=== PATIENT | female | born 1980 | race Hispanic/Latino ===

== ENCOUNTER 2018-08-01 12:31 | Emergency (ER) | payer OTHER, SELFPAY ==
[2018-08-01] MEDS ORDERED: OSELTAMIVIR 75 MG CAP ONE (13:55)
[2018-08-01] MEDS ORDERED: IBUPROFEN 400 MG TAB ONE ×2 (13:55→14:01)
[2018-08-01 14:06] LABS: Urine Blood 1+ (NEG); Urine Glucose NEGATIVE (NEG); Urine Protein 1+ (NEG)
--- NOTE | 2018-08-01 14:16 | ER ---
Nurse's Notes [facility] Name: Michelle Flores Age: 38 yrs Sex: Female : 1980 Arrival Date: 08/01/2018 Time: 12:35 Bed Treatment Private MD: Diagnosis: Fever, unspecified;Malaise and fatigue;Type 2 diabetes mellitus;Urinary tract infection, site not specified Presentation: 08/01 12:48 Presenting complaint: Patient states: MYALGIA AND FEVER SINCE THURSDAY. Transition of bp care: patient was not received from another setting of care. Onset of symptoms is unknown. Risk Assessment: Do you want to hurt yourself or someone else? Patient reports no desire to harm self or others. Initial Sepsis Screen: Does the patient meet any 2 criteria? No. Patient's initial sepsis screen is negative. Does the patient have a suspected source of infection? No. Patient's initial sepsis screen is negative. Care prior to arrival: None. 12:48 Method Of Arrival: Ambulatory bp 12:48 Acuity: RYAN 4 bp Historical: - Allergies: 12:49 No Known Allergies; bp - Home Meds: 12:49 metformin 500 mg Oral tab 1 tab 2 times per day [Active]; bp - PMHx: 12:49 Diabetes - NIDDM; bp - Immunization history:: Adult Immunizations up to date. - Social history:: Smoking status: Patient/guardian denies using tobacco. - Ebola Screening: : No symptoms or risks identified at this time. - Family history:: not pertinent. Screenin:48 Abuse screen: Denies threats or abuse. Denies injuries from another. Nutritional ss screening: No deficits noted. Tuberculosis screening: Never had TB. Fall Risk None identified. Assessment: 13:48 General: Appears uncomfortable, ill, Behavior is calm, cooperative, Reports chills for ss 2-3 days, fever for 2-3 days, feeling ill for 2-3 days, fatigue for 2-3 days. Pain: Complains of pain in general body aches Pain currently is 7 out of 10 on a pain scale. Quality of pain is described as aching, Pain began 2-3 days ago. Is continuous. Neuro: Level of Consciousness is awake, alert, obeys commands, Oriented to person, place, time, situation. Cardiovascular: Capillary refill < 3 seconds is brisk in bilateral Patient's skin is warm and dry. Respiratory: Airway is patent Respiratory effort is even, unlabored, Respiratory pattern is regular, symmetrical. GI: Patient currently denies diarrhea, nausea, vomiting. : No signs and/or symptoms were reported regarding the genitourinary system. Denies burning with urination. EENT: Nares are clear Oral mucosa is moist. Derm: Skin is intact, is healthy with good turgor, Skin is dry, Skin is pink, warm \T\ dry. normal. Musculoskeletal: Circulation, motion, and sensation intact. Range of motion: intact in all extremities, Swelling absent. 14:37 Reassessment: Patient appears in no apparent distress at this time. Patient and/or ss family updated on plan of care and expected duration. Pain level reassessed. Patient is alert, oriented x 3, equal unlabored respirations, skin warm/dry/pink. Patient states feeling better. Patient states symptoms have improved. Vital Signs: 12:49 BP 121 / 68; Pulse 97; Resp 16; Temp 99.4; Pulse Ox 98% ; Weight 95.71 kg; Height 5 ft. bp 2 in. (157.48 cm); 12:49 Body Mass Index 38.59 (95.71 kg, 157.48 cm) bp ED Course: 12:35 Patient arrived in ED. tw3 12:49 Triage completed. bp 12:49 Arm band placed on. bp 12:51 Atif Lamb MD is Attending Physician. [facility] 13:36 Brenda Meredith, ULICES is Primary Nurse. ss 13:44 Urine Culture Sent. 5 13:45 Diet: Patient given juice. 5 13:45 Urine collected: clean catch specimen, cloudy. mh5 13:48 Patient has correct armband on for positive identification. Bed in low position. Call ss light in reach. 14:37 No provider procedures requiring assistance completed. Patient did not have IV access ss during this emergency room visit. Administered Medications: 13:42 Drug: Motrin 800 mg Route: PO; ss 14:36 Follow up: Response: No adverse reaction; Marked relief of symptoms; Pain is decreased ss 13:42 Drug: Tamiflu 75 mg Route: PO; ss 14:37 Follow up: Response: No adverse reaction ss 14:36 Drug: LevOfloxacin 750 mg Route: PO; ss 14:36 Follow up: Response: Medication administered at discharge. Outcome: 14:15 Discharge ordered by . elly 14:41 Discharged to home ambulatory. 14:41 Condition: good 14:41 Discharge instructions given to patient, family, Instructed on discharge instructions, follow up and referral plans. medication usage, Demonstrated understanding of instructions, follow-up care, medications, Prescriptions given X 3. 14:42 Patient left the ED. Signatures: Atif Lamb MD MD cha Smirch, Shelby, RN RN [place] 5 Charles, Niurka 3 Kojo Villeda, ULICES RN bp
--- NOTE | 2018-08-01 14:16 | EDPHYS ---
Physician Documentation [facility] Name: Michelle Flores Age: 38 yrs Sex: Female : 1980 Arrival Date: 08/01/2018 Time: 12:35 Bed Treatment Private MD: ED Physician Atif Lamb HPI: 08/01 13:25 This 38 yrs old Female presents to ER via Ambulatory with complaints of Fever, elly Pain All Over. 13:25 The patient reports fever, that was measured at 100 degrees Fahrenheit. Onset: The elly symptoms/episode began/occurred 2 day(s) ago. Modifying factors: there are no obvious modifying factors. Associated signs and symptoms: Pertinent positives: cough, runny nose. Severity of symptoms: At their worst the symptoms were mild in the emergency department the symptoms are unchanged. The patient has not experienced similar symptoms in the past. Historical: - Allergies: 12:49 No Known Allergies; bp - Home Meds: 12:49 metformin 500 mg Oral tab 1 tab 2 times per day [Active]; bp - PMHx: 12:49 Diabetes - NIDDM; bp - Immunization history:: Adult Immunizations up to date. - Social history:: Smoking status: Patient/guardian denies using tobacco. - Ebola Screening: : No symptoms or risks identified at this time. - Family history:: not pertinent. ROS: 13:25 Eyes: Negative for injury, pain, redness, and discharge, ENT: Negative for injury, elly pain, and discharge, Neck: Negative for injury, pain, and swelling, Cardiovascular: Negative for chest pain, palpitations, and edema, Respiratory: Negative for shortness of breath, cough, wheezing, and pleuritic chest pain, Abdomen/GI: Negative for abdominal pain, nausea, vomiting, diarrhea, and constipation, : Negative for injury, bleeding, discharge, and swelling, MS/Extremity: Negative for injury and deformity, Skin: Negative for injury, rash, and discoloration, Neuro: Negative for headache, weakness, numbness, tingling, and seizure, Psych: Negative for depression, anxiety, suicide ideation, homicidal ideation, and hallucinations, Allergy/Immunology: Negative for hives, rash, and allergies, Endocrine: Negative for neck swelling, polydipsia, polyuria, polyphagia, and marked weight changes, Hematologic/Lymphatic: Negative for swollen nodes, abnormal bleeding, and unusual bruising. 13:25 Constitutional: Positive for body aches, fatigue, fever. 13:25 Back: Positive for decreased range of motion, pain at rest, pain with movement, of the lumbar area. Exam: 13:25 Head/Face: Normocephalic, atraumatic. Eyes: Pupils equal round and reactive to light, elly extra-ocular motions intact. Lids and lashes normal. Conjunctiva and sclera are non-icteric and not injected. Cornea within normal limits. Periorbital areas with no swelling, redness, or edema. ENT: Nares patent. No nasal discharge, no septal abnormalities noted. Tympanic membranes are normal and external auditory canals are clear. Oropharynx with no redness, swelling, or masses, exudates, or evidence of obstruction, uvula midline. Mucous membranes moist. Neck: Trachea midline, no thyromegaly or masses palpated, and no cervical lymphadenopathy. Supple, full range of motion without nuchal rigidity, or vertebral point tenderness. No Meningismus. Chest/axilla: Normal chest wall appearance and motion. Nontender with no deformity. No lesions are appreciated. Cardiovascular: Regular rate and rhythm with a normal S1 and S2. No gallops, murmurs, or rubs. Normal PMI, no JVD. No pulse deficits. Respiratory: Lungs have equal breath sounds bilaterally, clear to auscultation and percussion. No rales, rhonchi or wheezes noted. No increased work of breathing, no retractions or nasal flaring. Abdomen/GI: Soft, non-tender, with normal bowel sounds. No distension or tympany. No guarding or rebound. No evidence of tenderness throughout. Back: No spinal tenderness. No costovertebral tenderness. Full range of motion. Female : Normal external genitalia. Skin: Warm, dry with normal turgor. Normal color with no rashes, no lesions, and no evidence of cellulitis. MS/ Extremity: Pulses equal, no cyanosis. Neurovascular intact. Full, normal range of motion. Neuro: Awake and alert, GCS 15, oriented to person, place, time, and situation. Cranial nerves II-XII grossly intact. Motor strength 5/5 in all extremities. Sensory grossly intact. Cerebellar exam normal. Normal gait. Psych: Awake, alert, with orientation to person, place and time. Behavior, mood, and affect are within normal limits. 13:25 Constitutional: The patient appears febrile, in obvious distress, mildly distressed. Vital Signs: 12:49 BP 121 / 68; Pulse 97; Resp 16; Temp 99.4; Pulse Ox 98% ; Weight 95.71 kg; Height 5 ft. bp 2 in. (157.48 cm); 12:49 Body Mass Index 38.59 (95.71 kg, 157.48 cm) bp MDM: 13:12 Patient medically screened. [facility] 14:06 Data reviewed: vital signs, nurses notes, lab test result(s). [facility] 08/01 13:12 Order name: Flu; Complete Time: 14:08 08/01 13:12 Order name: Strep; Complete Time: 14:08 08/01 13:24 Order name: Urine Culture [facility] 08/01 13:47 Order name: Urine Dipstick--Ancillary (enter results); Complete Time: 14:08 08/01 13:47 Order name: Urine --Ancillary (enter results); Complete Time: 14:08 08/01 13:54 Order name: Throat Culture [facility] 08/01 13:24 Order name: Urine Dipstick-Ancillary (obtain specimen); Complete Time: 13:44 [facility] 08/01 13:29 Order name: PO challenge; Complete Time: 13:42 [facility] Administered Medications: 13:42 Drug: Motrin 800 mg Route: PO; 14:36 Follow up: Response: No adverse reaction; Marked relief of symptoms; Pain is decreased 13:42 Drug: Tamiflu 75 mg Route: PO; 14:37 Follow up: Response: No adverse reaction 14:36 Drug: LevOfloxacin 750 mg Route: PO; 14:36 Follow up: Response: Medication administered at discharge. Disposition: 08/01/18 14:15 Discharged to Home. Impression: Fever, unspecified, Malaise and fatigue, Type 2 diabetes mellitus, Urinary tract infection, site not specified. - Condition is Stable. - Discharge Instructions: Type 2 Diabetes Mellitus, Diagnosis, Adult, Fever, Adult, Urinary Tract Infection, Adult, Weakness, Urinary Tract Infection, Adult, Whjp-[id number], Weakness, Uahe-cf-Crce, Type 2 Diabetes Mellitus, Diagnosis, Adult, Uzjz-wy-Kucs, Fever, Adult, Lnwh-nm-Wily. - Prescriptions for Zofran 4 mg Oral Tablet - take 1 tablet by ORAL route every 12 hours As needed; 14 tablet. Tamiflu 75 mg Oral Capsule - take 1 tablet by ORAL route every 12 hours for 5 days; 10 tablet. Levaquin 500 mg Oral Tablet - take 1 tablet by ORAL route once daily for 7 days; 7 tablet. - Medication Reconciliation Form, Thank You Letter, Antibiotic Education, Prescription Opioid Use, Work release form, Family Work Release form. - Follow up: Private Physician; When: 2 - 3 days; Reason: Recheck today's complaints, Continuance of care, Re-evaluation by your physician. - Problem is new. - Symptoms have improved. Signatures: Dispatcher [employer] EDMS Atif Lamb MD MD cha Smirch, Shelby, ULICES RN Kojo Aguilera RN RN bp Corrections: (The following items were deleted from the chart) 14:42 14:15 08/01/2018 14:15 Discharged to Home. Impression: Fever, unspecified; Malaise and ss fatigue; Type 2 diabetes mellitus; Urinary tract infection, site not specified. Condition is Stable. Discharge Instructions: Type 2 Diabetes Mellitus, Diagnosis, Adult, Fever, Adult, Weakness, Weakness, Rqly-ca-Cefh, Type 2 Diabetes Mellitus, Diagnosis, Adult, Wajq-xx-Qnxv, Fever, Adult, Chkz-nn-Kwqz. Prescriptions for Zofran 4 mg Oral Tablet - take 1 tablet by ORAL route every 12 hours As needed; 14 tablet, Zithromax Z-Gibson 250 mg Oral Tablet - take 1 tablet by ORAL route as directed for 5 days Day 1 - take two (2) tablets one time. Day 2, 3, 4 , 5 take one (1) tablet once daily.; 6 tablet, Tamiflu 75 mg Oral Capsule - take 1 tablet by ORAL route every 12 hours for 5 days; 10 tablet. and Forms are Medication Reconciliation Form, Thank You Letter, Antibiotic Education, Prescription Opioid Use. Follow up: Private Physician; When: 2 - 3 days; Reason: Recheck today's complaints, Continuance of care, Re-evaluation by your physician. Problem is new. Symptoms have improved. elly
[2018-08-01] MEDS ORDERED: levoFLOXacin 750 MG TAB ONE (14:48)
== END 2018-08-01 14:42 | disposition home or self-care (01) ==
LOC: ER 12:31
DX: R50.9 Fever, unspecified (principal); E11.9 Type 2 diabetes mellitus without complications; N39.0 Urinary tract infection, site not specified; R53.83 Other fatigue; Z79.84 Long term (current) use of oral hypoglycemic drugs
CPT/HCPCS: 81003; 81025; 87070; 87081; 87086; 87088; 87804; 99283

== ENCOUNTER 2018-10-29 16:34 | Emergency (ER) | payer SELFPAY ==
[2018-10-29] MEDS ORDERED: FENTANYL CITR 100 MCG/2 ML ONE (17:08)
--- NOTE | 2018-10-29 17:25 | ER ---
Nurse's Notes [facility] Name: Michelle Flores Age: 38 yrs Sex: Female : 1980 Arrival Date: 10/29/2018 Time: 16:40 Bed 23 Private MD: Diagnosis: Sprain of ankle Presentation: 10/29 16:41 Presenting complaint: EMS states: Pt fell 4 steps down, twisted R ankle. Denied LOC, ca1 back pain. Transition of care: patient was not received from another setting of care. Onset of symptoms was October 29, 2018. Risk Assessment: Do you want to hurt yourself or someone else? Patient reports no desire to harm self or others. Initial Sepsis Screen: Does the patient meet any 2 criteria? No. Patient's initial sepsis screen is negative. Does the patient have a suspected source of infection? No. Patient's initial sepsis screen is negative. Care prior to arrival: Splint applied. 16:41 Method Of Arrival: EMS: [facility] ca1 16:41 Acuity: RYAN 4 ca1 Triage Assessment: 16:45 General: Appears in no apparent distress. comfortable, Behavior is calm, cooperative, ca1 appropriate for age. Pain: Complains of pain in right ankle Pain currently is 6 out of 10 on a pain scale. 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 - Social history:: Smoking status: Patient/guardian denies using tobacco. - Ebola Screening: : Patient negative for fever greater than or equal to 101.5 degrees Fahrenheit, and additional compatible Ebola Virus Disease symptoms Patient denies exposure to infectious person Patient denies travel to an Ebola-affected area in the 21 days before illness onset No symptoms or risks identified at this time. Screenin:47 Abuse screen: Denies threats or abuse. Denies injuries from another. Nutritional ca1 screening: No deficits noted. Tuberculosis screening: No symptoms or risk factors identified. Fall Risk Fall in past 12 months (25 points). Assessment: 16:47 General: Appears in no apparent distress. comfortable, Behavior is calm, cooperative, ca1 appropriate for age. Pain: Complains of pain in right leg and right ankle Pain currently is 6 out of 10 on a pain scale. Neuro: Level of Consciousness is awake, alert, obeys commands, Oriented to person, place, time, situation. Cardiovascular: Heart tones S1 S2 present Capillary refill < 3 seconds Patient's skin is warm and dry. Respiratory: Airway is patent Respiratory effort is even, unlabored, Respiratory pattern is regular, symmetrical, Breath sounds are clear bilaterally. GI: Abdomen is round non-distended, Bowel sounds present X 4 quads. Abd is soft and non tender X 4 quads. : No deficits noted. No signs and/or symptoms were reported regarding the genitourinary system. EENT: No deficits noted. No signs and/or symptoms were reported regarding the EENT system. Derm: Skin is intact, is healthy with good turgor, Skin is pink, warm \T\ dry. Musculoskeletal: Circulation, motion, and sensation intact. Capillary refill < 3 seconds, Range of motion: limited in right ankle. 17:50 Reassessment: Patient appears in no apparent distress at this time. Patient and/or ca1 family updated on plan of care and expected duration. Pain level reassessed. Patient is alert, oriented x 3, equal unlabored respirations, skin warm/dry/pink. Patient states feeling better. Vital Signs: 16:47 BP 118 / 78; Pulse 89; Resp 17 S; Temp 98.1(O); Pulse Ox 99% on R/A; Weight 90.72 kg ca1 (R); Height 5 ft. 2 in. (157.48 cm) (R); Pain 6/10; 17:50 BP 121 / 81; Pulse 82; Resp 16; Pulse Ox 100% on R/A; ca1 16:47 Body Mass Index 36.58 (90.72 kg, 157.48 cm) ca1 ED Course: 16:40 Patient arrived in ED. ca1 16:40 Dom Abdi PA is PHCP. jr8 16:40 Ko Davis MD is Attending Physician. jr8 16:42 Triage completed. ca1 16:45 Arm band placed on right wrist. ca1 16:47 Patient has correct armband on for positive identification. Bed in low position. Call ca1 light in reach. Side rails up X 1. Pulse ox on. NIBP on. Warm blanket given. 16:47 No provider procedures requiring assistance completed. ca1 16:51 Affected limb iced. Affected limb elevated. ca1 16:54 Marcela Falcon, RN is Primary Nurse. ca1 16:58 XRAY Tib Fib RIGHT In Process Unspecified. EDMS 17:10 Inserted saline lock: 22 gauge in right antecubital area, using aseptic technique. Blood collected. 17:24 Adam Hinkle MD is Referral Physician. jr8 17:50 Crutch training done. John Paul wrap to right ankle. ca1 17:51 IV discontinued, intact, bleeding controlled, No redness/swelling at site. Pressure ca1 dressing applied. Administered Medications: 17:10 Drug: fentaNYL (PF) 50 mcg {Note: RASS 0.} Route: IVP; Site: right antecubital; 17:36 Follow up: Response: No adverse reaction; Pain is decreased; RASS: Alert and Calm (0) ca1 Outcome: 17:24 Discharge ordered by . jrElissa 17:51 Discharged to home via wheelchair, with crutches, with family, with friend. ca1 17:51 Condition: stable 17:51 Discharge instructions given to patient, Instructed on discharge instructions, follow up and referral plans. medication usage, crutch walking, Demonstrated understanding of instructions, follow-up care, medications, crutch walking, Prescriptions given X 2. 17:52 Patient left the ED. ca1 Signatures: Dispatcher [employer] EDMS Dom Abdi PA PA jr8 Darrius Neri Marcela Falcon, RN RN ca1 Corrections: (The following items were deleted from the chart) 17:51 16:47 Patient did not have IV access during this emergency room visit. ca1 ca1
--- NOTE | 2018-10-29 17:25 | EDPHYS ---
Physician Documentation [facility] Name: Michelle Flores Age: 38 yrs Sex: Female : 1980 Arrival Date: 10/29/2018 Time: 16:40 Bed 23 Private MD: ED Physician Ko Davis HPI: 10/29 16:42 This 38 yrs old Female presents to ER via Unassigned with complaints of Fall jr8 Injury. 16:42 Details of fall: The patient fell from a height, down approximately 4 stairs. Onset: jr8 The symptoms/episode began/occurred acutely, today. Associated injuries: The patient sustained right ankle, decreased range of motion, painful injury, swelling. Severity of symptoms: At their worst the symptoms were moderate, in the emergency department the symptoms are unchanged. The patient has not experienced similar symptoms in the past. The patient has not recently seen a physician. KINESIOLOGIST: 16:47 LMP 09/24/2018 ca1 Historical: - Allergies: 16:45 No Known Allergies; ca1 - Home Meds: 16:45 metformin 500 mg Oral tab 1 tab 2 times per day [Active]; ca1 - PMHx: 16:45 Diabetes - NIDDM; ca1 - PSHx: 16:45 None; ca1 - Immunization history:: Adult Immunizations not up to date. - Social history:: Smoking status: Patient/guardian denies using tobacco. - Ebola Screening: : Patient negative for fever greater than or equal to 101.5 degrees Fahrenheit, and additional compatible Ebola Virus Disease symptoms Patient denies exposure to infectious person Patient denies travel to an Ebola-affected area in the 21 days before illness onset No symptoms or risks identified at this time. ROS: 16:42 Eyes: Negative for injury, pain, redness, and discharge, ENT: Negative for injury, jr8 pain, and discharge, Neck: Negative for injury, pain, and swelling, Cardiovascular: Negative for chest pain, palpitations, and edema, Respiratory: Negative for shortness of breath, cough, wheezing, and pleuritic chest pain, Abdomen/GI: Negative for abdominal pain, nausea, vomiting, diarrhea, and constipation, Back: Negative for injury and pain, Skin: Negative for injury, rash, and discoloration, Neuro: Negative for headache, weakness, numbness, tingling, and seizure. 16:42 MS/extremity: Positive for decreased range of motion, pain, swelling, tenderness, of the right ankle. Exam: 16:42 Head/Face: Normocephalic, atraumatic. Eyes: Pupils equal round and reactive to light, jr8 extra-ocular motions intact. Lids and lashes normal. Conjunctiva and sclera are non-icteric and not injected. Cornea within normal limits. Periorbital areas with no swelling, redness, or edema. ENT: Nares patent. No nasal discharge, no septal abnormalities noted. Tympanic membranes are normal and external auditory canals are clear. Oropharynx with no redness, swelling, or masses, exudates, or evidence of obstruction, uvula midline. Mucous membranes moist. Neck: Trachea midline, no thyromegaly or masses palpated, and no cervical lymphadenopathy. Supple, full range of motion without nuchal rigidity, or vertebral point tenderness. No Meningismus. Chest/axilla: Normal chest wall appearance and motion. Nontender with no deformity. No lesions are appreciated. Cardiovascular: Regular rate and rhythm with a normal S1 and S2. No gallops, murmurs, or rubs. Normal PMI, no JVD. No pulse deficits. Respiratory: Lungs have equal breath sounds bilaterally, clear to auscultation and percussion. No rales, rhonchi or wheezes noted. No increased work of breathing, no retractions or nasal flaring. Abdomen/GI: Soft, non-tender, with normal bowel sounds. No distension or tympany. No guarding or rebound. No evidence of tenderness throughout. Back: No spinal tenderness. No costovertebral tenderness. Full range of motion. Skin: Warm, dry with normal turgor. Normal color with no rashes, no lesions, and no evidence of cellulitis. Neuro: Awake and alert, GCS 15, oriented to person, place, time, and situation. Cranial nerves II-XII grossly intact. Motor strength 5/5 in all extremities. Sensory grossly intact. Cerebellar exam normal. Normal gait. 16:42 Musculoskeletal/extremity: Extremities: grossly normal except: noted in the right ankle: decreased ROM, pain, swelling, tenderness, Pulses: noted to be 2+ in the right radial artery, right posterior tibial artery, right dorsalis pedis artery, left radial artery, left posterior tibial artery and left dorsalis pedis artery. Vital Signs: 16:47 BP 118 / 78; Pulse 89; Resp 17 S; Temp 98.1(O); Pulse Ox 99% on R/A; Weight 90.72 kg ca1 (R); Height 5 ft. 2 in. (157.48 cm) (R); Pain 6/10; 17:50 BP 121 / 81; Pulse 82; Resp 16; Pulse Ox 100% on R/A; ca1 16:47 Body Mass Index 36.58 (90.72 kg, 157.48 cm) ca1 Procedures: 17:23 Splinting: Splint applied to right ankle using john paul wrap, applied by tech. nurse. jr8 Examined by me, post splint application: neurovascular intact, 2+ distal pulses palpable, brisk capillary refill noted, Patient tolerated well. Crutch training provided to patient and/or family. Return demonstration given. MDM: 16:40 Patient medically screened. jr8 17:23 Data reviewed: vital signs, nurses notes, radiologic studies, plain films. Data jr8 interpreted: Pulse oximetry: on room air is 99 %. Interpretation: normal. Test interpretation: by ED physician or midlevel provider: plain radiologic studies, No acute fracture noted . Counseling: I had a detailed discussion with the patient and/or guardian regarding: the historical points, exam findings, and any diagnostic results supporting the discharge/admit diagnosis, radiology results, the need for outpatient follow up, a orthopedic surgeon, to return to the emergency department if symptoms worsen or persist or if there are any questions or concerns that arise at home. 10/29 16:40 Order name: XRAY Tib Fib RIGHT jr8 10/29 16:40 Order name: IV; Complete Time: 17:04 jr8 10/29 17:23 Order name: John Paul wrap-joint; Complete Time: 17:45 jr8 10/29 17:23 Order name: Crutches; Complete Time: 17:45 jr8 Administered Medications: 17:10 Drug: fentaNYL (PF) 50 mcg {Note: RASS 0.} Route: IVP; Site: right antecubital; 17:36 Follow up: Response: No adverse reaction; Pain is decreased; RASS: Alert and Calm (0) ca1 Disposition: 10/29/18 17:24 Discharged to Home. Impression: Sprain of ankle. - Condition is Stable. - Discharge Instructions: Ankle Sprain. - Prescriptions for Ibuprofen 800 mg Oral Tablet - take 1 tablet by ORAL route every 12 hours As needed take with food; 20 tablet. Tramadol 50 mg Oral Tablet - take 1 tablet by ORAL route every 8 hours as needed; 12 tablet. - Work release form, Medication Reconciliation Form, Thank You Letter, Antibiotic Education, Prescription Opioid Use form. - Follow up: Adam Hinkle MD; When: 5 - 6 days; Reason: Recheck today's complaints, Continuance of care, Re-evaluation by your physician. - Problem is new. - Symptoms have improved. Addendum: 10/31/2018 19:24 Co-signature as Attending Physician, Ko Davis MD I agree with the assessment and k dr plan of care. Signatures: Dispatcher [employer] EDMS Ko Davis MD MD [facility] Dom Abdi PA PA jr8 Darrius Neri Cheryl, RN RN ca1 Corrections: (The following items were deleted from the chart) 10/29 17:52 17:24 10/29/2018 17:24 Discharged to Home. Impression: Sprain of ankle. Condition is ca1 Stable. Forms are Medication Reconciliation Form, Thank You Letter, Antibiotic Education, Prescription Opioid Use. Follow up: Dr. Adam Hinkle; When: 5 - 6 days; Reason: Recheck today's complaints, Continuance of care, Re-evaluation by your physician. Problem is new. Symptoms have improved. jr8
--- NOTE | 2018-10-29 17:36 | RAD REPORT ---
EXAM DESCRIPTION: RAD - Tib Fib Right - 10/29/2018 4:58 pm CLINICAL HISTORY: Right leg pain status post injury. FINDINGS: No fracture is seen
== END 2018-10-29 17:52 | disposition home or self-care (01) ==
LOC: ER 16:34
DX: S93.401A Sprain of unspecified ligament of right ankle, initial encounter (principal); W17.89XA Other fall from one level to another, initial encounter; Y93.9 Activity, unspecified; Y92.9 Unspecified place or not applicable
CPT/HCPCS: 96374; 99284; J3010

== ENCOUNTER → 2023-03-07 | Emergency (ER) | payer SELFPAY ==
[~2023-03-07] MED LIST: ACETAMINOPHEN 500 MG TAB ONE
--- NOTE | 2023-03-07 18:50 | RAD REPORT ---
EXAM DESCRIPTION: RAD - Chest Single View - 03/07/2023 6:44 pm CLINICAL HISTORY: CHEST PAIN Chest pain. COMPARISON: Chest Single View dated 11/15/2015 FINDINGS: Portable technique limits examination quality. The lungs are grossly clear. The heart is normal in size. No displaced fractures. IMPRESSION: No acute intrathoracic process suspected.
--- NOTE | 2023-03-07 18:52 | ER ---
Nurse's Notes [facility] Name: Michelle Flores Age: 42 yrs Sex: Female : 1980 Arrival Date: 03/07/2023 Time: 17:03 Bed IW1 Private MD: Diagnosis: Influenza due to identified novel influenza A virus Presentation: 03/07 17:16 Chief complaint: Patient states: Cough, congestion, fever, body aches onset today. Pt cm10 also reports chest pain that is worse with cough and deep breath. Coronavirus screen: Vaccine status: Patient reports receiving the 2nd dose of the covid vaccine. Client denies travel out of the [place] in the last 14 days. Ebola Screen: Patient denies travel to an Ebola-affected area in the 21 days before illness onset. No symptoms or risks identified at this time. Initial Sepsis Screen: Does the patient meet any 2 criteria? No. Patient's initial sepsis screen is negative. Does the patient have a suspected source of infection? No. Patient's initial sepsis screen is negative. Risk Assessment: Do you want to hurt yourself or someone else? Patient reports no desire to harm self or others. Onset of symptoms was March 07, 2023. 17:16 Method Of Arrival: Ambulatory cm10 17:16 Acuity: RYAN 3 cm10 Triage Assessment: 17:20 General: Appears in no apparent distress. uncomfortable, Behavior is calm, cooperative. cm10 Pain: Complains of pain in Generalized body aches Pain currently is 9 out of 10 on a pain scale. Quality of pain is described as aching. EENT: No deficits noted. Parent/caregiver reports the patient having nasal congestion. Neuro: No deficits noted. Level of Consciousness is awake, alert, obeys commands, Oriented to person, place, time, situation. Cardiovascular: No deficits noted. Reports chest pain, Denies shortness of breath, Patient's skin is warm and dry. Chest pain is aggravated by breathing. Respiratory: No deficits noted. Airway is patent Respiratory effort is even, unlabored, Respiratory pattern is regular, symmetrical. GI: No deficits noted. No signs and/or symptoms were reported involving the gastrointestinal system. : No deficits noted. No signs and/or symptoms were reported regarding the genitourinary system. Derm: No deficits noted. No signs and/or symptoms reported regarding the dermatologic system. Skin is intact, Skin is pink, warm \T\ dry. Musculoskeletal: No deficits noted. No signs and/or symptoms reported regarding the musculoskeletal system. Range of motion: intact in all extremities. Historical: - Allergies: 17:18 No Known Allergies; cm10 - PMHx: 17:18 Diabetes - NIDDM; cm10 - PSHx: 17:18 None; cm10 - Immunization history:: Adult Immunizations up to date. - Social history:: Smoking status: Patient denies any tobacco usage or history of. Screenin:20 [facility] ED Fall Risk Assessment (Adult) History of falling in the last 3 months, cm10 including since admission No falls in past 3 months (0 pts) Confusion or Disorientation No (0 pts) Intoxicated or Sedated No (0 pts) Impaired Gait No (0 pts) Mobility Assist Device Used No (0 pt) Altered Elimination No (0 pt) Score/Fall Risk Level 0 - 2 = Low Risk Oriented to surroundings, Maintained a safe environment, Hourly rounding (assess needs \T\ fall precautionary measures) done. Abuse screen: Denies threats or abuse. Denies injuries from another. Nutritional screening: No deficits noted. Tuberculosis screening: No symptoms or risk factors identified. Assessment: 18:10 Reassessment: Patient appears in no apparent distress at this time. Patient and/or cm10 family updated on plan of care and expected duration. Pain level reassessed. Vital Signs: 17:16 BP 119 / 73; Pulse 99; Resp 18; Temp 100.3(O); Pulse Ox 99% on R/A; Weight 96.62 kg; cm10 Pain 9/10; 17:16 Pain Scale: Adult cm10 ED Course: 17:06 Patient arrived in ED. mg5 17:07 Oma Kiran FNP-C is PHCP. cm10 17:08 Jamie Lee MD is Attending Physician. kb 17:18 Triage completed. cm10 17:19 Arm band placed on Patient placed in waiting room. EKG completed in triage. Results cm10 shown to MD. 17:20 Patient has correct armband on for positive identification. Provided Education on: ER cm10 process and procedures. . 17:20 No provider procedures requiring assistance completed. Patient did not have IV access cm10 during this emergency room visit. 17:27 Flu Sent. cm10 17:27 SARS-COV-2 RT PCR Sent. cm10 18:45 Chest Single View XRAY In Process Unspecified. EDMS Administered Medications: 18:06 Drug: Acetaminophen PO 1000 mg PO once Route: PO; cm10 Medication: 17:20 VIS not applicable for this client. cm10 Outcome: 18:52 Discharge ordered by . gigi 19:10 Discharged to home ambulatory, with significant other, cm10 19:10 Condition: good 19:10 Discharge instructions given to patient, significant other, Instructed on discharge instructions, follow up and referral plans. medication usage, Demonstrated understanding of instructions, follow-up care, medications, Prescriptions given X 1, 19:11 Patient left the ED. cm10 Signatures: Dispatcher [employer] EDMS Oma Kiran, AUDIE MENG-Siria Singer, RN RN cm10 Celena Gaviria mg5
--- NOTE | 2023-03-07 18:52 | EDPHYS ---
Physician Documentation [facility] Name: Michelle Flores Age: 42 yrs Sex: Female : 1980 Arrival Date: 03/07/2023 Time: 17:03 Bed IW1 Private MD: ED Physician Jamie Lee HPI: 03/07 17:41 This 42 yrs old Female presents to ER via Ambulatory with complaints of Flu kb Symptoms. 17:41 pt is a 42 year old female with a history of diabetes who presents for cough, kb congestion, fever, chills, bodyaches and chest pain with cough that started today. States she has been feeling sick for about 6 days. . Historical: - Allergies: 17:18 No Known Allergies; cm10 - PMHx: 17:18 Diabetes - NIDDM; cm10 - PSHx: 17:18 None; cm10 - Immunization history:: Adult Immunizations up to date. - Social history:: Smoking status: Patient denies any tobacco usage or history of. ROS: 17:34 Abdomen/GI: Negative for abdominal pain, nausea, vomiting, diarrhea, and constipation, kb 17:34 Constitutional: Positive for body aches, chills, fever, malaise, 17:34 ENT: Positive for rhinorrhea, sinus congestion, 17:34 Cardiovascular: Positive for chest pain, with cough, 17:34 Respiratory: Positive for cough, 17:34 All other systems are negative, Exam: 17:30 Constitutional: This is a well developed, well nourished patient who is awake, alert, kb and in no acute distress. Head/Face: Normocephalic, atraumatic. ENT: Moist Mucous membranes Cardiovascular: Regular rate Respiratory: Respirations even and unlabored. No increased work of breathing. Talking in full sentences Abdomen/GI: Soft, non-tender. No distention Skin: Warm, dry with normal turgor. Normal color. MS/ Extremity: Pulses equal, no cyanosis. Neurovascular intact. Full, normal range of motion. Neuro: Awake and alert, GCS 15, oriented to person, place, time, and situation. Moves all extremities. Normal gait. 17:30 ECG was reviewed by the Attending Physician. Vital Signs: 17:16 BP 119 / 73; Pulse 99; Resp 18; Temp 100.3(O); Pulse Ox 99% on R/A; Weight 96.62 kg; cm10 Pain 9/10; 17:16 Pain Scale: Adult cm10 MDM: 17:08 Patient medically screened. kb 17:40 Data reviewed: vital signs, nurses notes. kb 18:51 Differential Diagnosis: Bronchitis Influenza Upper Respiratory Infection Viral Syndrome kb Pneumonia. Counseling: I had a detailed discussion with the patient and/or guardian regarding the historical points, exam findings, and any diagnostic results supporting the discharge/admit diagnosis, lab results, radiology results, the need for outpatient follow up, a family practitioner, to return to the emergency department if symptoms worsen or persist or if there are any questions or concerns that arise at home. 03/07 17:16 Order name: SARS-COV-2 RT PCR; Complete Time: 18:24 cm10 03/07 17:16 Order name: Flu; Complete Time: 18:17 cm10 03/07 17:16 Order name: Chest Single View XRAY; Complete Time: 18:51 cm10 03/07 17:16 Order name: EKG; Complete Time: 17:16 cm10 03/07 17:16 Order name: EKG - Nurse/Tech; Complete Time: 17:27 cm10 EC:30 Rate is 96 beats/min. Rhythm is regular. QRS [place] is Normal. MS interval is normal at kb 130 msec. QRS interval is normal at 74 msec. QT interval is normal at 427 msec. Administered Medications: 18:06 Drug: Acetaminophen PO 1000 mg PO once Route: PO; cm10 Disposition Summary: 03/07/23 18:52 Discharge Ordered Notes: Location: Home kb Condition: Stable kb Diagnosis - Influenza due to identified novel influenza A virus kb Followup: kb - With: Emergency Department - When: As needed - Reason: Worsening of condition Followup: kb - With: Private Physician - When: 2 - 3 days - Reason: Recheck today's complaints, Continuance of care, Re-evaluation by your physician Discharge Instructions: - Discharge Summary Sheet kb - Influenza, Adult, [id number] kb Forms: - Medication Reconciliation Form kb - Thank You Letter kb - Antibiotic Education kb - Prescription Opioid Use kb - Patient Portal Instructions kb - Leadership Thank You Letter kb - Work release form cm10 Prescriptions: - Tamiflu 75 mg Oral capsule - take 1 tablet ORAL route every 12 hours for 5 days; 10 tablet; Refills: 0, kb Product Selection Permitted Signatures: Dispatcher [employer] Oma Dumont, SECOND OPERATOR-C SECOND OPERATOR-Siria Singer, RN RN cm10
[2023-03-07 21:53] VITALS: BP 119/73; TEMP 100.3; O2SAT 99
--- NOTE | 2023-03-09 12:25 | EKG ---
Test Date: 2023-03-07 Test Time: 17:23:41 [employer] Middleware Developer: VEENA MEASUREMENT RESULTS: Intervals: Rate: 96 [place]: 130 QRSD: 74 QT: 338 QTc: 427 [place]: P: -13 [place]: 130 QRS: -32 T: 46 INTERPRETIVE STATEMENTS: Normal sinus rhythm Left axis deviation Abnormal ECG Compared to ECG 11/15/2015 17:33:51 Left-axis deviation now present T-wave abnormality no longer present Electronically Signed On 03-09-23 12:20:37 BUTT WELDER by Sunday Salmon
== END ==
LOC: ER 17:03
DX: J10.1 Influenza due to other identified influenza virus with other respiratory manifestations (principal); Z11.52 Encounter for screening for COVID-19
CPT/HCPCS: 71045; 87635; 87804; 93005; 99284

== ENCOUNTER 2024-04-28 15:11 | Emergency (ER) | payer OTHER, SELFPAY ==
[2024-04-28 16:48] LABS: Specific Gravity 1.022 (1.005-1.030); Sqamous Epithelial <5 /HPF (None Seen); Urine Bacteria <20 /HPF (<20); Urine Bilirubin NEGATIVE (Negative); Urine Blood 1+ (Negative); Urine Clarity Clear (Clear); Urine Color Light-Yellow (Yellow); Urine Culture Reflex Order NOT NEEDED; Urine Glucose NEGATIVE (Negative); Urine Ketones NEGATIVE (Negative); Urine Microscopic Reflex YN ORDER UMIC; Urine Mucus Slight /HPF (None Seen); Urine Nitrite NEGATIVE (Negative); Urine Protein NEGATIVE (Negative); Urine RBC <5 /HPF (None Seen); Urine Urobilinogen Normal (Normal); Urine WBC <5 /HPF (<5)
[2024-04-28 16:49] LABS: Specific Gravity 1.022 (1.005-1.030)
--- NOTE | 2024-04-28 16:53 | RAD REPORT ---
EXAMINATION: Shoulder Left 2+ Views CLINICAL INDICATION: Female, 43 years old. PAIN COMPARISON: No prior exam. FINDINGS: No acute fracture. No malalignment/dislocation. No significant focal degenerative change. Other: Metallic foreign body in the left arm at the level of the mid humerus. This measures 15 mm. IMPRESSION: No acute osseous abnormality. Foreign bodies noted above.
--- NOTE | 2024-04-28 16:54 | RAD REPORT ---
EXAMINATION: Ankle Right 3 View CLINICAL INDICATION: Female, 43 years old. PAIN COMPARISON: No prior exam. FINDINGS: No acute fracture. No malalignment/dislocation. Tiny dorsal aspect calcaneal spur. Other: n/a IMPRESSION: No acute osseous abnormality.
--- NOTE | 2024-04-28 18:25 | RAD REPORT ---
EXAMINATION: CT HEAD WITHOUT CONTRAST CT CERVICAL SPINE WITHOUT CONTRAST CLINICAL INDICATION: Female, 43 years old. fall in shower, head/upper back/mid back/ribs TECHNIQUE: Axial CT images from the skull base to the vertex without intravenous contrast. Axial CT i mages through the cervical spine were obtained without intravenous contrast. Sagittal and coronal reformatted images were created from the data set. Coronal and sagittal reformatted images were creat ed from the data set. One or more of the following dose reduction techniques were used: Automated exposure control, adjustment of the mA and/or kV according to patient size, and/or iterative reconstr uction. Unless otherwise specified, incidental findings do not require dedicated imaging follow-up. [id number]. COMPARISON: No prior exam. FINDINGS: Head: INTRACRANIAL: No acute intracranial hemorrhage. No hydrocephalus. No mass effect or midline shift. No significant white matter disease. VASCULATURE: No visualized abnormalities in the arteries or dural venous sinuses. SCALP/SKULL: No calvarial fracture identified. No acute soft tissue abnormality. SINUSES: The visualized paranasal sinuses and mastoid air cells are predominantly clear. No significa nt mastoid fluid. Cervical spine: ALIGNMENT: The cervical spine has normal alignment without scoliosis or spondylolisthesis. BONE: Vertebral body heights are maintained. No aggressive osseous lesions. DEGENERATIVE: Multilevel cervical spondylosis with evidence of mild bilateral neural foraminal narrow ing. No high grade central spinal stenosis. SOFT TISSUE: No significant abnormalities in the soft tissue of the neck. The visualized lung apices are clear. IMPRESSION: No acute intracranial abnormality. No acute fracture or traumatic malalignment of the cervical spine.
--- NOTE | 2024-04-28 18:29 | RAD REPORT ---
EXAM: CT CHEST, ABDOMEN AND PELVIS WITHOUT CONTRAST CLINICAL INDICATION: Female, 43 years TRAUMA TECHNIQUE: CT chest, abdomen and pelvis was performed, with IV contrast, as per department protocol. Axial, sagittal and coronal reconstructions were obtained. One or more of the following dose reduction techniques were used: Automated exposure control, adjustment of the mA and/or kV according to the patient size, and/or iterative reconstruction. Unless otherwise specified, incidental findings do not require dedicated imaging follow-up. [id number]. COMPARISON: No prior exam. FINDINGS: THORAX: LOWER NECK AND CHEST WALL: Visualized thyroid gland and soft tissues are normal. LUNGS AND AIRWAYS: Airways are clear. No evidence of airspace or interstitial process.No suspicious a nd/or stable pulmonary nodules. PLEURA: No pleural effusion. No pneumothorax. MEDIASTINUM AND LYMPH NODES: No mediastinal mass or fluid collection. Normal size mediastinal, hilar, and axillary lymph nodes. THORACIC AORTA: No thoracic aortic aneurysm. PULMONARY ARTERIES: Caliber is within normal limits. HEART: Normal heart size. No coronary calcifications.No significant pericardial effusion. ABDOMEN/PELVIS: UPPER GI: No significant abnormality. LIVER: Hepatic steatosis, but otherwise unremarkable. GALLBLADDER/BILE DUCTS: No biliary ductal dilatation.? PANCREAS: No mass, ductal dilation, or eloisa-pancreatic fluid. SPLEEN: Unremarkable. ADRENALS: No adrenal masses. KIDNEYS AND URETERS: No hydronephrosis.No suspicious renal mass.No renal calculi. ABDOMINAL AORTA AND OTHER VESSELS: Normal caliber aorta and IVC. PERITONEUM: No abnormal free fluid. No free air. LYMPH NODES: No pathologic lymphadenopathy. ABDOMINAL WALL: Unremarkable SMALL BOWEL/COLON: Small bowel has normal course and caliber. No colonic wall thickening or pericolon ic inflammatory changes. URINARY BLADDER: Underdistended but grossly unremarkable. REPRODUCTIVE ORGANS: Enlarged fibroid uterus. COMBINED: MUSCULOSKELETAL: Multilevel degenerative changes in the spine. No acute fracture. ADDITIONAL FINDINGS: None. IMPRESSION: No evidence of significant trauma to the chest, abdomen, or pelvis. Incidental findings as noted above,
--- NOTE | 2024-04-28 18:38 | EDPHYS ---
Physician Documentation [facility] Name: Michelle Flores Age: 43 yrs Sex: Female : 1980 Arrival Date: 04/28/2024 Time: 15:11 Bed 19 Private MD: ED Physician Cedric Garza HPI: 04/28 15:56 This 43 yrs old Female presents to ER via EMS with complaints of Fall Injury. rn 15:56 Details of fall: The patient fell from an upright position. Onset: The symptoms/episode rn began/occurred just prior to arrival. Associated injuries: The patient sustained injury to the head, upper back injury, injury to the chest. Severity of symptoms: At their worst the symptoms were. 16:01 The patient has not experienced similar symptoms in the past. The patient has not rn recently seen a physician. Patient reports slipped and shower, struck her head, reports pain to upper and mid back, left ribs, left shoulder, right ankle. Does not take blood thinners. No LOC. Unable to get out of shower by herself due to pain in the ankle and shoulder.. 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 - Infectious Disease History:: Denies. - Social history:: Smoking status: unknown. - Family history:: not pertinent. - Hospitalizations: : No recent hospitalization is reported. ROS: 16:02 Constitutional: Negative for fever, chills, and weight loss, Neck: Negative for injury, rn pain, and swelling, Cardiovascular: Positive for left rib injury and pain Respiratory: Negative for shortness of breath, cough, wheezing, and pleuritic chest pain, Abdomen/GI: Negative for abdominal pain, nausea, vomiting, diarrhea, and constipation, Back: Positive for mid and upper back pain MS/Extremity: Positive for left shoulder and right ankle injury and pain Neuro: Positive for mild headache Exam: 16:02 Constitutional: This is a well developed, well nourished patient who is awake, alert, rn and in no acute distress. Head/Face: Normocephalic, atraumatic. Eyes: Pupils equal round and reactive to light, extra-ocular motions intact. Lids and lashes normal. Conjunctiva and sclera are non-icteric and not injected. Cornea within normal limits. Periorbital areas with no swelling, redness, or edema. Neck: No midline cervical tenderness. Chest/axilla: Left inferior anterior rib tenderness without crepitus Cardiovascular: Regular rate and rhythm. No pulse deficits. Respiratory: Speaking full sentences, unlabored. No increased work of breathing, no retractions or nasal flaring. Abdomen/GI: Soft, non-tender Back: No midline spinal tenderness. Tenderness eloisa-Thoracic MS/ Extremity: Pulses equal, no cyanosis. Tenderness left shoulder with painful range of motion. Tenderness right lateral malleolus with swelling, no lacerations Neuro: Awake and alert, GCS 15 Vital Signs: 15:41 BP 118 / 63; Pulse 76; Resp 20; Temp 98.6; Pulse Ox 100% ; Weight 106.59 kg; Height 5 kj2 ft. 2 in. ; Pain 8/10; 17:00 BP 106 / 72; Pulse 70; Resp 18; Pulse Ox 100% on R/A; kj2 18:00 BP 108 / 74; Pulse 72; Resp 18; Pulse Ox 100% on R/A; kj2 18:58 BP 116 / 64; Pulse 70; Resp 18; Temp 98.2; kj2 15:41 Body Mass Index 42.98 (106.59 kg, 157.48 cm) kj2 15:41 Pain Scale: Adult kj2 MDM: 15:40 Medical Screening Exam initiated rn 18:35 Differential diagnosis: closed head injury, contusion, fracture, multiple trauma, rn sprain, strain. Data reviewed: vital signs, nurses notes, radiologic studies, CT scan, plain films, and as a result, I will discharge patient. Counseling: I had a detailed discussion with the patient and/or guardian regarding the historical points, exam findings, and any diagnostic results supporting the discharge/admit diagnosis, lab results, radiology results, the need for outpatient follow up, to return to the emergency department if symptoms worsen or persist or if there are any questions or concerns that arise at home. ED course: No acute findings and imaging, specifically no fracture of the shoulder or the ankle as well as negative CT head chest abdomen pelvis. Metallic foreign body identified incidentally in the left mid humeral region, examined patient again and no external signs of foreign body and patient not aware of previous injury there. Showed her the film. Will discharge home with return precautions.. 04/28 16:02 Order name: Test, Urine; Complete Time: 16:58 rn 04/28 16:02 Order name: Urinalysis w/ reflexes; Complete Time: 16:58 rn 04/28 15:45 Order name: XRAY Shoulder LEFT 2 view; Complete Time: 16:58 rn 04/28 15:45 Order name: XRAY Ankle RIGHT 3 view; Complete Time: 16:58 rn 04/28 16:58 Order name: Chest Abdomen Pelvis W Cont; Complete Time: 18:29 EDMS 04/28 16:59 Order name: Head C Spine Mpr Wo Con; Complete Time: 18:29 EDMS Administered Medications: No medications were administered Disposition Summary: 04/28/24 18:37 Discharge Ordered Notes: Location: Home rn Problem: new rn Symptoms: have improved rn Condition: Stable rn Diagnosis - Fall on same level, unspecified rn - Contusion of back wall of thorax rn - Contusion of lower back and pelvis rn - Contusion of left shoulder rn - Sprain of unspecified ligament of right ankle, initial encounter rn Followup: rn - With: Private Physician - When: As needed - Reason: Recheck today's complaints, Re-evaluation by your physician Discharge Instructions: - Discharge Summary Sheet rn - Ankle Sprain rn - Contusion rn - Shoulder Pain rn Forms: - Medication Reconciliation Form rn - Antibiotic online journalist - Prescription Opioid Use rn - Patient Portal Instructions rn - Leadership Thank You Letter rn - Work release form kj2 Signatures: Dispatcher [employer] EDMS Cedric Garza MD MD rn Jordan, Krystal, RN RN kj2 Corrections: (The following items were deleted from the chart) 15:46 15:46 Ankle Right 3 View+RAD.RAD.BRZ ordered. EDMS EDMS 16:59 15:46 Head C Spine CAP W Con+CT.RAD.BRZ ordered. EDMS EDMS
--- NOTE | 2024-04-28 18:38 | ER ---
Nurse's Notes [facility] Name: Michelle Flores Age: 43 yrs Sex: Female : 1980 Arrival Date: 04/28/2024 Time: 15:11 Bed 19 Private MD: Diagnosis: Fall on same level, unspecified;Contusion of back wall of thorax;Contusion of lower back and pelvis;Contusion of left shoulder;Sprain of unspecified ligament of right ankle, initial encounter Presentation: 04/28 15:46 Chief complaint: EMS states: fell at work, no LOC, did not hit her head. Coronavirus kj2 screen: Client denies travel out of the [place] in the last 14 days. Ebola Screen: No symptoms or risks identified at this time. Initial Sepsis Screen: Does the patient meet any 2 criteria? No. Patient's initial sepsis screen is negative. Does the patient have a suspected source of infection? No. Patient's initial sepsis screen is negative. Risk Assessment: Do you want to hurt yourself or someone else? Patient reports no desire to harm self or others. Onset of symptoms was April 28, 2024. 15:46 Method Of Arrival: EMS: [facility] 15:46 Acuity: RYAN 3 kj2 15:47 Care prior to arrival: Medication(s) given: Tylenol, 650 mg. kj2 Triage Assessment: 15:48 General: Appears in no apparent distress. Behavior is calm, cooperative. Pain: kj2 Complains of pain in left side flank, middle of back, right foot, left shoulder Pain currently is 8 out of 10 on a pain scale. Neuro: Level of Consciousness is awake, alert, obeys commands, Oriented to person, place, time, situation. Cardiovascular: Patient's skin is warm and dry. Respiratory: Airway is patent Respiratory effort is unlabored. GI: No signs and/or symptoms were reported involving the gastrointestinal system. : No signs and/or symptoms were reported regarding the genitourinary system. Musculoskeletal: Reports left shoulder. 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 - Infectious Disease History:: Denies. - Social history:: Smoking status: unknown. - Family history:: not pertinent. - Hospitalizations: : No recent hospitalization is reported. Screenin:52 [facility] ED Fall Risk Assessment (Adult) History of falling in the last 3 months, kj2 including since admission No falls in past 3 months (0 pts) Confusion or Disorientation No (0 pts) Intoxicated or Sedated No (0 pts) Impaired Gait No (0 pts) Mobility Assist Device Used No (0 pt) Altered Elimination No (0 pt) Score/Fall Risk Level 0 - 2 = Low Risk Maintained a safe environment, Hourly rounding (assess needs \T\ fall precautionary measures) done. Abuse screen: Denies threats or abuse. Denies injuries from another. Nutritional screening: No deficits noted. Tuberculosis screening: No symptoms or risk factors identified. Assessment: 16:00 General: see triage assessment. kj2 17:00 Reassessment: Patient appears in no apparent distress at this time. Patient and/or 2 family updated on plan of care and expected duration. Pain level reassessed. Patient is alert, oriented x 3, equal unlabored respirations, skin warm/dry/pink. 18:00 Reassessment: Patient appears in no apparent distress at this time. Patient and/or kj2 family updated on plan of care and expected duration. Pain level reassessed. Patient is alert, oriented x 3, equal unlabored respirations, skin warm/dry/pink. 18:57 Reassessment: Patient appears in no apparent distress at this time. Patient and/or kj2 family updated on plan of care and expected duration. Pain level reassessed. Patient is alert, oriented x 3, equal unlabored respirations, skin warm/dry/pink. Vital Signs: 15:41 BP 118 / 63; Pulse 76; Resp 20; Temp 98.6; Pulse Ox 100% ; Weight 106.59 kg; Height 5 kj2 ft. 2 in. ; Pain 8/10; 17:00 BP 106 / 72; Pulse 70; Resp 18; Pulse Ox 100% on R/A; kj2 18:00 BP 108 / 74; Pulse 72; Resp 18; Pulse Ox 100% on R/A; kj2 18:58 BP 116 / 64; Pulse 70; Resp 18; Temp 98.2; kj2 15:41 Body Mass Index 42.98 (106.59 kg, 157.48 cm) kj2 15:41 Pain Scale: Adult kj2 ED Course: 15:40 Patient arrived in ED. rn 15:40 Cedric Garza MD is Attending Physician. rn 15:41 Mary Basurto, RN is Primary Nurse. kj2 15:47 Triage completed. kj2 15:52 Patient has correct armband on for positive identification. Bed in low position. Call kj2 light in reach. Provided Education on: call light. 16:37 XRAY Shoulder LEFT 2 view In Process Unspecified. EDMS 16:37 XRAY Ankle RIGHT 3 view In Process Unspecified. EDMS 16:59 Radiology exam delayed due to lab results not completed at this time. IV insertion jc4 attempt and/or patient not having appropriate IV at this time. 17:15 No provider procedures requiring assistance completed. kj2 18:14 Chest Abdomen Pelvis W Cont In Process Unspecified. EDMS 18:15 Head C Spine Mpr Wo Con In Process Unspecified. EDMS 18:59 IV discontinued, intact, bleeding controlled, No redness/swelling at site. Pressure kj2 dressing applied. Administered Medications: No medications were administered Medication: 15:52 VIS not applicable for this client. kj2 Outcome: 18:37 Discharge ordered by MD. rn 18:58 Discharged to home ambulatory, with family, kj2 18:58 Condition: stable 18:58 Discharge instructions given to patient, Instructed on discharge instructions, follow up and referral plans. Demonstrated understanding of instructions, follow-up care, 19:19 Patient left the ED. kj2 Signatures: Dispatcher [employer] EDMS Cedric Garza MD MD rn Crisp, Justin jc4 Mary Basurto RN RN kj2
[2024-04-28 19:23] VITALS: O2SAT 100
[2024-04-28 19:28] VITALS: BP 116/64; TEMP 98.2
== END 2024-04-28 19:19 | disposition home or self-care (01) ==
LOC: ER 15:11
DX: S93.401A Sprain of unspecified ligament of right ankle, initial encounter (principal); S20.222A Contusion of left back wall of thorax, initial encounter; S30.0XXA Contusion of lower back and pelvis, initial encounter; S40.012A Contusion of left shoulder, initial encounter; W18.2XXA Fall in (into) shower or empty bathtub, initial encounter
CPT/HCPCS: 81001; 81025; 70450; 72125; 71260; 74177; 73030; 73610; 99283; Q9967